=== PATIENT | female | born 1990 | race Caucasian/White ===

== ENCOUNTER 2016-08-08 21:00 | Observation (INO) | payer MEDICAID ==
[~2016-08-08] VITALS: Ht 175.3 cm; Wt 62.5 kg
[~2016-08-08 21:00] MED LIST: ALPR.25 PO; BACT PO; CITA10SO PO; ZOFR4TAB3 SL
[2016-08-08 21:11] VITALS: BP 134/71; PULSE 83; RESP 25; TEMP 98; O2SAT 98
[2016-08-08] MEDS ORDERED: ONDANSETRON HCL 4 MG/2 ML VIAL IV PUSH ONE (21:15)
[2016-08-08] MEDS ORDERED: LIDOCAINE HCL 1% PF 30 ML VIAL INFIL ONE (21:15)
[2016-08-08] MEDS ORDERED: HYDROmorphone HCL PF 1 MG/ML VIAL IV PUSH ONE ×2 (21:15→22:30)
[2016-08-08] MEDS ORDERED: LIDOCAINE 1%/EPINEPHrine 1:100,000 SOLN 20 ML VIAL INFIL ONE ×2 (21:15)
[2016-08-08] MEDS ORDERED: DOXYCYCLINE INJ 200 MG in SODIUM CHLOR 0.9% 250 ML INJ 250 ML IV ONE (21:15)
[2016-08-08] MEDS ORDERED: LORazepam 2 MG/ML VIAL IV PUSH ONE ×2 (21:15→22:30)
[2016-08-08] MEDS ORDERED: SODIUM CHLORIDE 0.9% FLUSH 10 ML FLUSH IVF PRN (21:15)
[2016-08-08] MEDS ORDERED: LIDOCAINE 0.5%/EPINEPHrine 1:200,000 SOLN 50 ML VIAL INFIL ONE (21:15)
[2016-08-08] MEDS ORDERED: TETANUS/DIPHTHERIA TOXOID PEDIATRIC 0.5 ML VIAL IM ONE (21:15)
[2016-08-08] MEDS ORDERED: DIPHTH/TETANUS/ACEL PERTUSSIS (BOOSTER) 0.5 ML VIAL/PFS IM ONE ×2 (21:24→21:45)
--- NOTE | 2016-08-08 22:26 | PD ---
Physical Exam Time Seen by Provider: 21:40 Data Data Last Documented VS Vital Signs Date Time Temp Pulse Resp B/P Pulse Ox O2 Delivery O2 Flow Rate FiO2 08/08/16 21:11 98.0 83 25 134/71 98 Orders Lidocai-Epi 1%-1:100,000 Inj (Xylocaine- (08/08/16 21:15) Lidocaine Pf 1% Inj (Xylocaine-Mpf 1% In (08/08/16 21:15) Lidocai-Epi 1%-1:100,000 Inj (Xylocaine- (08/08/16 21:15) Iv Access Insert/Monitor (08/08/16 21:09) Wound Care (08/08/16 21:09) Sodium Chloride 0.9% Flush (Ns Flush) (08/08/16 21:15) Tetanus-Diphther Tox Peds Inj (Tetanus-D (08/08/16 21:15) Doxycycline Inj (Vibramycin Inj) (08/08/16 21:15) Hydromorphone Pf Inj (Dilaudid Pf Inj) (08/08/16 21:15) Ondansetron Inj (Zofran Inj) (08/08/16 21:15) Lorazepam Inj (Ativan Inj) (08/08/16 21:15) Lidocai-Epi 0.5%-1:200,000 Inj (Xylocain (08/08/16 21:15) Lvno-Idd-Nifkfj (Booster) Inj (Boostrix (08/08/16 21:24) Lwry-Vfl-Miwuqa (Booster) Inj (Boostrix (08/08/16 21:45) Lorazepam Inj (Ativan Inj) (08/08/16 22:30) Hydromorphone Pf Inj (Dilaudid Pf Inj) (08/08/16 22:30) Sodium Chlor 0.9% 1000 Ml Inj (Ns 1000 M (08/08/16 22:30) Complete Blood Count With Diff (08/08/16 22:40) Basic Metabolic Panel (Bmp) (08/08/16 22:40) Admit Order (Ed Use Only) (08/08/16 22:45) MDM Medical Record Reviewed: Yes Supervised Visit with MELINDA: No Narrative Course This patient presents with numerous lacerations. I was asked to repair them. The patient verbally consents. Please see my procedure note. Mandy penn also performed several laceration repairs, see her procedure Notes. Procedures Procedure Narrative LACERATION LOCATION: Left buttocks LENGTH: 4 cm NUMBER OF STITCHES/JOHN: 3 REPAIR: The area of the laceration was prepped with Betadine and sterilely draped. The laceration was infiltrated with 1% lidocaine with epinephrine. The wound was copiously irrigated and explored without evidence of foreign body , tendon injury or neurovascular injury. The wound was closed using 4-0 nylon one simple interrupted suture, 2 continuous running sutures. This was a single layer repair. A sterile dressing was applied. The patient was advised to keep the dressing clean and dry. Patient tolerated the procedure well. LACERATION LOCATION: Left buttocks LENGTH: 4 cm NUMBER OF STITCHES/JOHN: 1 REPAIR: The area of the laceration was prepped with Betadine and sterilely draped. The laceration was infiltrated with 1% lidocaine with epinephrine. The wound was copiously irrigated and explored without evidence of foreign body , tendon injury or neurovascular injury. The wound was closed using 4-0 nylon one continuous running suture. This was a single layer repair. A sterile dressing was applied. The patient was advised to keep the dressing clean and dry. Patient tolerated the procedure well. LACERATION LOCATION: Left buttocks LENGTH: 6 cm NUMBER OF STITCHES/JOHN: 1 REPAIR: The area of the laceration was prepped with Betadine and sterilely draped. The laceration was infiltrated with 1% lidocaine with epinephrine. The wound was copiously irrigated and explored without evidence of foreign body , tendon injury or neurovascular injury. The wound was closed using 4-0 nylon one continuous running suture. This was a single layer repair. A sterile dressing was applied. The patient was advised to keep the dressing clean and dry. Patient tolerated the procedure well. LACERATION LOCATION: Left upper back LENGTH: 3 cm NUMBER OF STITCHES/JOHN: 1 REPAIR: The area of the laceration was prepped with Betadine and sterilely draped. The laceration was infiltrated with 1% lidocaine with epinephrine. The wound was copiously irrigated and explored without evidence of foreign body , tendon injury or neurovascular injury. The wound was closed using 4-0 nylon one continuous running suture. This was a single layer repair. A sterile dressing was applied. The patient was advised to keep the dressing clean and dry. Patient tolerated the procedure well. LACERATION LOCATION: Left upper back LENGTH: 3 cm NUMBER OF STITCHES/JOHN: 1 REPAIR: The area of the laceration was prepped with Betadine and sterilely draped. The laceration was infiltrated with 1% lidocaine with epinephrine. The wound was copiously irrigated and explored without evidence of foreign body , tendon injury or neurovascular injury. The wound was closed using 4-0 nylon one continuous running suture. This was a single layer repair. A sterile dressing was applied. The patient was advised to keep the dressing clean and dry. Patient tolerated the procedure well. LACERATION LOCATION: Left upper back LENGTH: 1 cm NUMBER OF STITCHES/JOHN: 2 REPAIR: The area of the laceration was prepped with Betadine and sterilely draped. The laceration was infiltrated with 1% lidocaine with epinephrine. The wound was copiously irrigated and explored without evidence of foreign body , tendon injury or neurovascular injury. The wound was closed using 4-0 nylon simple interrupted. This was a single layer repair. A sterile dressing was applied. The patient was advised to keep the dressing clean and dry. Patient tolerated the procedure well. Bernard Perez August 08, 2016 22:26
[2016-08-08] MEDS ORDERED: SODIUM CHLOR 0.9% 1000 ML INJ 1,000 ML IV ONE (22:30)
[2016-08-08] MEDS ORDERED: CLINDAMYCIN INJ 900 MG in SODIUM CHLORIDE 0.9% INJ 100 ML IV ONE (23:15)
[2016-08-08 23:24] VITALS: BP 128/65; PULSE 82; RESP 16; O2SAT 99
[2016-08-08 23:29] LABS: AUTOMATED NEUTROPHIL # 14.1 TH/MM3 (1.8-7.7); BASOPHIL # 0.1 TH/MM3 (0-0.2); BASOPHIL % 0.3 % (0.0-2.0); EOSINOPHIL # 0.1 TH/MM3 (0-0.4); EOSINOPHIL % 0.6 % (0.0-4.0); HEMATOCRIT 41.3 % (35.0-46.0); HEMO FLAGS DIFF FINAL; LYMPH % 8.2 % (9.0-44.0); LYMPHOCYTE # 1.4 TH/MM3 (1.0-4.8); MEAN CELL VOLUME 87.2 FL (80.0-100.0); MEAN CORPUSCULAR HEMOGLOBIN 29.2 PG (27.0-34.0); MEAN CORPUSCULAR HGB CONC 33.4 % (32.0-36.0); MONO % 7.1 % (0.0-8.0); NEUT % 83.8 % (16.0-70.0); PLATELET COUNT 354 TH/MM3 (150-450); RED BLOOD COUNT 4.74 MIL/MM3 (4.00-5.30); RED CELL DISTRIBUTION WIDTH 13.5 % (11.6-17.2); WHITE BLOOD COUNT 16.8 TH/MM3 (4.0-11.0)
[2016-08-08] MEDS ORDERED: SODIUM CHLORIDE 0.9% FLUSH 10 ML FLUSH IV FLUSH PRN (23:30)
[2016-08-08] MEDS ORDERED: ONDANSETRON HCL 4 MG/2 ML VIAL IV PRN (23:30)
[2016-08-08] MEDS ORDERED: oxyCODONE/ACETAMINOPHEN 5 MG/325 MG TAB PO PRN (23:30)
[2016-08-08] MEDS ORDERED: Post-op Orders (for Pharmacy) MISC XX ONE (23:30)
[2016-08-08 23:47] LABS: BICARBONATE 28.2 MEQ/L (21.0-32.0); POTASSIUM 3.8 MEQ/L (3.5-5.1)
[2016-08-09 00:09] VITALS: BP 100/56; PULSE 64; RESP 18; TEMP 98.2; O2SAT 97
[2016-08-09] MEDS: HYDROmorphone HCL PF 1 MG/ML VIAL IV PRN ×3 (00:20→06:10)
[2016-08-09] MEDS: SODIUM CHLOR 0.9% 1000 ML INJ 1,000 ML IV SCH ×2 (00:58→09:30)
[2016-08-09] MEDS ORDERED: CLINDAMYCIN INJ 600 MG in SODIUM CHLORIDE 0.9% INJ 50 ML IV SCH (04:00)
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
[2016-08-09 04:37] VITALS: BP 107/55; PULSE 77; RESP 18; TEMP 98.8; O2SAT 97
--- NOTE | 2016-08-09 07:04 | PD ---
Physical Exam Time Seen by Provider: 07:01 Data Data Last Documented VS Vital Signs Date Time Temp Pulse Resp B/P Pulse Ox O2 Delivery O2 Flow Rate FiO2 08/08/16 22:05 16 08/08/16 21:11 98.0 83 134/71 98 Orders Lidocai-Epi 1%-1:100,000 Inj (Xylocaine- (08/08/16 21:15) Lidocaine Pf 1% Inj (Xylocaine-Mpf 1% In (08/08/16 21:15) Lidocai-Epi 1%-1:100,000 Inj (Xylocaine- (08/08/16 21:15) Iv Access Insert/Monitor (08/08/16 21:09) Wound Care (08/08/16 21:09) Sodium Chloride 0.9% Flush (Ns Flush) (08/08/16 21:15) Tetanus-Diphther Tox Peds Inj (Tetanus-D (08/08/16 21:15) Doxycycline Inj (Vibramycin Inj) (08/08/16 21:15) Hydromorphone Pf Inj (Dilaudid Pf Inj) (08/08/16 21:15) Ondansetron Inj (Zofran Inj) (08/08/16 21:15) Lorazepam Inj (Ativan Inj) (08/08/16 21:15) Lidocai-Epi 0.5%-1:200,000 Inj (Xylocain (08/08/16 21:15) Hsin-Fyi-Xxvncm (Booster) Inj (Boostrix (08/08/16 21:24) Vxqg-Jig-Upiiis (Booster) Inj (Boostrix (08/08/16 21:45) Lorazepam Inj (Ativan Inj) (08/08/16 22:30) Hydromorphone Pf Inj (Dilaudid Pf Inj) (08/08/16 22:30) Sodium Chlor 0.9% 1000 Ml Inj (Ns 1000 M (08/08/16 22:30) Complete Blood Count With Diff (08/08/16 22:40) Basic Metabolic Panel (Bmp) (08/08/16 22:40) Admit Order (Ed Use Only) (08/08/16 22:45) Labs Laboratory Tests Test 08/08/16 22:40 White Blood Count 16.8 TH/MM3 Red Blood Count 4.74 MIL/MM3 Hemoglobin 13.8 GM/DL Hematocrit 41.3 % Mean Corpuscular Volume 87.2 FL Mean Corpuscular Hemoglobin 29.2 PG Mean Corpuscular Hemoglobin 33.4 % Concent Red Cell Distribution Width 13.5 % Platelet Count 354 TH/MM3 Mean Platelet Volume 6.8 FL Neutrophils (%) (Auto) 83.8 % Lymphocytes (%) (Auto) 8.2 % Monocytes (%) (Auto) 7.1 % Eosinophils (%) (Auto) 0.6 % Basophils (%) (Auto) 0.3 % Neutrophils # (Auto) 14.1 TH/MM3 Lymphocytes # (Auto) 1.4 TH/MM3 Monocytes # (Auto) 1.2 TH/MM3 Eosinophils # (Auto) 0.1 TH/MM3 Basophils # (Auto) 0.1 TH/MM3 CBC Comment DIFF FINAL Differential Comment Sodium Level 141 MEQ/L Potassium Level 3.8 MEQ/L Chloride Level 104 MEQ/L Carbon Dioxide Level 28.2 MEQ/L Anion Gap 9 MEQ/L Blood Urea Nitrogen 11 MG/DL Creatinine 0.83 MG/DL Estimat Glomerular Filtration 82 ML/MIN Rate Random Glucose 70 MG/DL Calcium Level 8.6 MG/DL MDM Medical Record Reviewed: Yes Supervised Visit with MELINDA: No Procedures Procedure Narrative LACERATION LOCATION: Right foot LENGTH: 4 cm NUMBER OF STITCHES/JOHN: 5 sutures REPAIR: The area of the laceration was prepped with Betadine and sterilely draped. The laceration was infiltrated with percent lidocaine with epinephrine. The wound was copiously irrigated and explored without evidence of foreign body, tendon injury or neurovascular injury. The wound was closed using 4-0 Ethilon. This was a single layer repair. A sterile dressing was applied. The patient was advised to keep the dressing clean and dry. Patient tolerated the procedure well. LACERATION LOCATION: Right foot LENGTH: 3 cm NUMBER OF STITCHES/JOHN: 4 sutures REPAIR: The area of the laceration was prepped with Betadine and sterilely draped. The laceration was infiltrated with percent lidocaine with epinephrine. The wound was copiously irrigated and explored without evidence of foreign body, tendon injury or neurovascular injury. The wound was closed using 4-0 Ethilon. This was a single layer repair. A sterile dressing was applied. The patient was advised to keep the dressing clean and dry. Patient tolerated the procedure well. LACERATION LOCATION: Right great toe LENGTH: 2cm NUMBER OF STITCHES/JOHN: 2 sutures REPAIR: The area of the laceration was prepped with Betadine and sterilely draped. The laceration was infiltrated with percent lidocaine with epinephrine. The wound was copiously irrigated and explored without evidence of foreign body, tendon injury or neurovascular injury. The wound was closed using 4-0 Ethilon. This was a single layer repair. A sterile dressing was applied. The patient was advised to keep the dressing clean and dry. Patient tolerated the procedure well. LACERATION LOCATION: Right great toe LENGTH:2 cm NUMBER OF STITCHES/JOHN: 3 sutures REPAIR: The area of the laceration was prepped with Betadine and sterilely draped. The laceration was infiltrated with percent lidocaine with epinephrine. The wound was copiously irrigated and explored without evidence of foreign body, tendon injury or neurovascular injury. The wound was closed using 4-0 Ethilon. This was a single layer repair. A sterile dressing was applied. The patient was advised to keep the dressing clean and dry. Patient tolerated the procedure well. LACERATION LOCATION: Left foot LENGTH: 2 cm NUMBER OF STITCHES/JOHN: 3 sutures REPAIR: The area of the laceration was prepped with Betadine and sterilely draped. The laceration was infiltrated with percent lidocaine with epinephrine. The wound was copiously irrigated and explored without evidence of foreign body, tendon injury or neurovascular injury. The wound was closed using 4-0 Ethilon. This was a single layer repair. A sterile dressing was applied. The patient was advised to keep the dressing clean and dry. Patient tolerated the procedure well. LACERATION LOCATION: Right hand LENGTH: 2 cm NUMBER OF STITCHES/JOHN: 3 sutures REPAIR: The area of the laceration was prepped with Betadine and sterilely draped. The laceration was infiltrated with percent lidocaine with epinephrine. The wound was copiously irrigated and explored without evidence of foreign body, tendon injury or neurovascular injury. The wound was closed using 4-0 Ethilon. This was a single layer repair. A sterile dressing was applied. The patient was advised to keep the dressing clean and dry. Patient tolerated the procedure well. Condition: Stable Mandy Shen August 09, 2016 07:04
[2016-08-09 07:51] VITALS: BP 94/59; PULSE 63; RESP 18; TEMP 98.5; O2SAT 96
[2016-08-09] MEDS ORDERED: SODIUM CHLORIDE 0.9% FLUSH 10 ML FLUSH IV FLUSH SCH (09:00)
[2016-08-09] MEDS ORDERED: KETO10 PO (10:45)
[2016-08-09] MEDS ORDERED: COLA100C3 PO (10:45)
[2016-08-09] MEDS ORDERED: ACET1CAP18 PO (10:45)
[2016-08-09] MEDS ORDERED: CRUTMIS3 (10:51)
[2016-08-09] MEDS ORDERED: BACITRACIN TOP OINT 15 GM TUBE TOPICAL SCH (11:00)
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
[2016-08-09 12:15] VITALS: BP 120/67; PULSE 75; RESP 18; TEMP 98.5; O2SAT 100
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
== END 2016-08-09 13:19 | disposition home or self-care (01) ==
LOC: NEPC 21:00 → NEDA 22:47 → NEPGCP 23:48
PROVIDERS: ADMIT Surgery; ATTEND Surgery
DX: S31.821A Laceration without foreign body of left buttock, initial encounter (principal); S21.212A Laceration without foreign body of left back wall of thorax without penetration into thoracic cavity, initial encounter; S91.311A Laceration without foreign body, right foot, initial encounter; S91.111A Laceration without foreign body of right great toe without damage to nail, initial encounter; S91.312A Laceration without foreign body, left foot, initial encounter; S61.411A Laceration without foreign body of right hand, initial encounter; V94.0XXA Hitting object or bottom of body of water due to fall from watercraft, initial encounter
CPT/HCPCS: 12005; 12006; 80048; 85025; G0378; J1170; J2060; J2405; J7030; J7050; 12007; 90471; 90715; 96374; 96375; 96376

== ENCOUNTER 2016-08-16 13:35 | Emergency (ER) | payer MEDICAID ==
[~2016-08-16] VITALS: Ht 175.3 cm; Wt 50.0 kg
[~2016-08-16 13:35] MED LIST changes: +ACET1CAP18 PO; -ALPR.25 PO; -BACT PO; -CITA10SO PO; +COLA100C3 PO; +CRUTMIS3; +KETO10 PO; -ZOFR4TAB3 SL
[2016-08-16 13:37] VITALS: BP 124/77; PULSE 77; RESP 14; TEMP 98.2; O2SAT 98
[2016-08-16] MEDS ORDERED: DOXY100C PO (14:19)
[2016-08-16] MEDS ORDERED: IBUP800T23 PO (14:19)
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
== END 2016-08-16 14:33 | disposition home or self-care (01) ==
LOC: NEPK 13:35
DX: S91.312D Laceration without foreign body, left foot, subsequent encounter (principal); S91.311D Laceration without foreign body, right foot, subsequent encounter; L08.9 Local infection of the skin and subcutaneous tissue, unspecified; F17.200 Nicotine dependence, unspecified, uncomplicated; W19.XXXD Unspecified fall, subsequent encounter; Z48.02 Encounter for removal of sutures
CPT/HCPCS: 99282

== ENCOUNTER 2016-12-18 17:25 | Emergency (ER) | payer SELFPAY ==
[~2016-12-18] VITALS: Ht 175.3 cm; Wt 67.0 kg
[~2016-12-18 17:25] MED LIST changes: +DOXY100C PO; +IBUP800T23 PO
[2016-12-18 17:28] VITALS: BP 118/76; PULSE 80; RESP 17; TEMP 98.6; O2SAT 100
--- NOTE | 2016-12-18 18:51 | RADRPT ---
EXAM DATE/TIME: 12/18/2016 18:42 [facility] COMPARISON: No previous studies available for comparison. INDICATIONS : Chest pain and shortness of breath. MEDICAL HISTORY : None. SURGICAL HISTORY : None. ENCOUNTER: Initial ACUITY: 2 days PAIN SCORE: 7/10 LOCATION: Bilateral chest FINDINGS: PA and lateral views of the chest demonstrate the lungs to be symmetrically aerated without evidence of mass, infiltrate or effusion. The cardiomediastinal contours are unremarkable. Osseous structure s are intact. CONCLUSION: No evidence of acute cardiopulmonary disease. Demetrius Hope MD on December 18, 2016 at 18:50 Board Certified Radiologist. This report was verified electronically.
[2016-12-18] MEDS ORDERED: SODIUM CHLORIDE 0.9% FLUSH 10 ML FLUSH IVF PRN (19:45)
--- NOTE | 2016-12-18 19:46 | PD ---
HPI Chief Complaint: Chest Pain Time Seen by Provider: 19:16 Travel History International Travel<30 days: No Contact w/Intl Traveler<30days: No Traveled to known affect area: No History of Present Illness HPI 26-year-old female presents to emergency department with complaint of midsternal chest pain for the last 2-3 days. Does not know how far along she is. Last menstrual period November 03. Reports feeling exhausted. Denies shortness of breath. Says it feels like she is having heart palpitations at times, but denies at this time. Reports nausea without vomiting. Denies fevers , hemoptysis. Denies recent illness. Reports intermittent pelvic abdominal cramping that has been on and off. Says she took a test 2 weeks ago because she was having some abdominal cramping and found out that she was . Denies vaginal bleeding. Denies abdominal cramping at this time. Chest pain with movement and palpation. Has tried taking ibuprofen for symptom management. Denies family and self cardiac history. Says she quit smoking cigarettes 2 weeks ago. Has not seen an bird cage assembler. Plans on seeing Dr. Damon. History of vertigo. Denies current medications. Primary care provider is Dr. Nick Gunn. Allergies to acetaminophen and oxycodone. Has no other medical complaints. Symptoms are moderate in severity. No other modifying factors or associated signs and symptoms. PFSH Past Medical History Diabetes: No Diminished Hearing: No Tetanus Vaccination: Unknown ?: LMP: 11/03/16 Menopausal: Yes : 2 Para: 2 Past Surgical History Section: Yes Other Surgery: Yes (c section) Social History Alcohol Use: No Tobacco Use: No (1/2ppd) Substance Use: No Allergies-Medications (Allergen,Severity, Reaction): Coded Allergies: acetaminophen (Unverified Adverse Reaction, Severe, Nausea/Vomiting, ) oxycodone (Unverified Adverse Reaction, Severe, Nausea/Vomiting, 12/18/16) *MDRO Multi-Drug Resistant Organism (Unverified Adverse Reaction, Unknown , 12/18/16) ESBL E. coli (urine) - 02/2014 Reported Meds & Prescriptions Reported Meds & Active Scripts Active No Active Prescriptions or Reported Medications Review of Systems Except as stated in HPI: all other systems reviewed are Neg Physical Exam Narrative GENERAL: Well-nourished, well-developed female patient, in no acute distress SKIN: Warm and dry. HEAD: Atraumatic. Normocephalic. EYES: Pupils equal and round. No scleral icterus. No injection or drainage. ENT: Mucosa pink and moist. NECK: Trachea midline. CHEST: Reproducible chest wall tenderness to the mid left sternum/breast; no crepitance or deformity. No retractions or use of accessory muscles. CARDIOVASCULAR: Regular rate and rhythm. No murmur appreciated. RESPIRATORY: No accessory muscle use. Clear to auscultation. Breath sounds equal bilaterally. No retractions or tachypnea. GASTROINTESTINAL: Abdomen soft, non-tender, nondistended. Hepatic and splenic margins not palpable. Bowel sounds are active 4 quadrants. MUSCULOSKELETAL: No obvious deformities. No clubbing. No cyanosis. No edema. BACK: No CVA tenderness. NEUROLOGICAL: Awake and alert. Oriented 3. No obvious cranial nerve deficits. Motor grossly within normal limits. Normal speech. Moves all extremities. 5/5 strength to all extremities. PSYCHIATRIC: Appropriate mood and affect; insight and judgment normal. Data Data Last Documented VS Vital Signs Date Time Temp Pulse Resp B/P (MAP) Pulse Ox O2 Delivery O2 Flow Rate FiO2 12/18/16 18:56 65 12/18/16 17:28 98.6 17 118/76 (90) 100 Room Air Orders Orders Electrocardiogram (12/18/16 17:53) Chest, Pa & Lat (12/18/16 17:53) Beta Hcg (Quant/Titer) (12/18/16 19:32) Us Pelvis (Ques Preg/Ectopic) (12/18/16 ) Urinalysis - C+S If Indicated (12/18/16 19:32) Iv Access Insert/Monitor (12/18/16 19:32) Sodium Chloride 0.9% Flush (Ns Flush) (12/18/16 19:45) Ed Urine Pregnancytest Poc (12/18/16 19:32) Labs Laboratory Tests Test 12/18/16 20:08 Urine Color YELLOW Urine Turbidity HAZY Urine pH 6.0 Urine Specific [place] 1.025 Urine Protein TRACE mg/dL Urine Glucose (UA) NEG mg/dL Urine Ketones NEG mg/dL Urine Occult Blood NEG Urine Nitrite NEG Urine Bilirubin NEG Urine Urobilinogen LESS THAN 2.0 MG/DL Urine Leukocyte Esterase MOD Urine RBC 2 /hpf Urine WBC 3 /hpf Urine Squamous Epithelial Cells 11 /hpf Urine Bacteria FEW /hpf Urine Mucus FEW /lpf Microscopic Urinalysis Comment CULT NOT INDICATED MDM Medical Decision Making Medical Screen Exam Complete: Yes Emergency Medical Condition: Yes Medical Record Reviewed: Yes Differential Diagnosis Chest wall pain, costochondritis, chest wall muscle strain, less likely [place]; intrauterine , ectopic Narrative Course 26-year-old female that is and had last menstrual period November 03 with reproducible chest wall pain and intermittent lower abdominal pain. Denies vaginal discharge or bleeding. Chest x-ray is no acute findings. EKG with normal sinus rhythm; no ST elevation or depression. 2041: Urinalysis with no signs of infection. HCG pending. Pelvic and transvaginal ultrasound pending. Patient reported off to Dr. Graham at this time. He has never patient about this patient. Diagnosis Primary Impression: Chest wall pain Scripts No Active Prescriptions or Reported Meds Debbie Bradford Dec 18, 2016 19:46
[2016-12-18 20:37] LABS: BACTERIA, URINE FEW /hpf; BLOOD, URINE NEG (NEG); COMMENT (UR) CULT NOT INDICATED; CULTURE IF INDICATED CULT NOT INDICATED; GLUCOSE,URINE NEG (NEG); KETONE, URINE NEG (NEG); MUCUS URINE FEW /lpf (OCC); NITRITE,URINE NEG (NEG); SQUAMOUS EPITHELIAL CELL URINE 11 /hpf (0-5); URINE COLOR YELLOW (YELLW/STRAW)
--- NOTE | 2016-12-18 20:52 | PD ---
Data Data Last Documented VS Vital Signs Date Time Temp Pulse Resp B/P (MAP) Pulse Ox O2 Delivery O2 Flow Rate FiO2 12/18/16 22:28 72 16 120/72 (88) 99 12/18/16 17:28 98.6 Room Air Orders Orders Electrocardiogram (12/18/16 17:53) Chest, Pa & Lat (12/18/16 17:53) Beta Hcg (Quant/Titer) (12/18/16 19:32) Urinalysis - C+S If Indicated (12/18/16 19:32) Iv Access Insert/Monitor (12/18/16 19:32) Sodium Chloride 0.9% Flush (Ns Flush) (12/18/16 19:45) Ed Urine Pregnancytest Poc (12/18/16 19:32) Us Pelvis (Ques Pr/Ect)W Trans (12/18/16 ) Labs Laboratory Tests Test 12/18/16 20:08 Urine Color YELLOW Urine Turbidity HAZY Urine pH 6.0 Urine Specific [place] 1.025 Urine Protein TRACE mg/dL Urine Glucose (UA) NEG mg/dL Urine Ketones NEG mg/dL Urine Occult Blood NEG Urine Nitrite NEG Urine Bilirubin NEG Urine Urobilinogen LESS THAN 2.0 MG/DL Urine Leukocyte Esterase MOD Urine RBC 2 /hpf Urine WBC 3 /hpf Urine Squamous Epithelial Cells 11 /hpf Urine Bacteria FEW /hpf Urine Mucus FEW /lpf Microscopic Urinalysis Comment CULT NOT INDICATED Human Chorionic Gonadotropin, Quant 6317 MIU/ML MDM Supervised Visit with MELINDA: Yes Narrative Course Patient care assumed from Kalina PORTER at 2100. This is a 26-year-old female presents emergency department chiefly for chest pain. She's coming by her significant other who states pérez he thinks he just needs to relax more. Patient is , hCG is approximately 6000, official ultrasound was obtained which shows: Last 24 hours Impressions Chest X-Ray 12/18/16 1753 Signed Impressions: Service Date/Time: Sunday, December 18, 2016 18:42 - CONCLUSION: No evidence of acute cardiopulmonary disease. Demetrius Hope MD Pelvis Ultrasound 12/18/16 0000 Signed Impressions: Service Date/Time: Sunday, December 18, 2016 20:48 - CONCLUSION: Very early intrauterine without an acute abnormality. Please see above. Demetrius Hope MD Patient appears well in no distress, reviewed her EKG which is normal. Discussed with her symptomatic management early care taking vitamins need follow-up with an MEDICAL DIAGNOSTIC RADIOGRAPHER and return to ED criteria. She stable for discharge. She appears quite well and quite pleasant. Diagnosis Primary Impression: Chest wall pain Additional Impression: Abdominal pain affecting Med/Other Pt SpecificInfo: Prescription(s) given Scripts Vit W/ Ferrous Fumara ( Vitamins 28-0.8 mg) 28 Mg Iron-800 Mcg Tab 1 TAB PO DAILY for 30 Days, 9 Refills Prov: Rogelio Graham MD 12/18/16 Disposition: 01 DISCHARGE HOME Condition: Stable Rogelio Graham MD Dec 18, 2016 20:52
[2016-12-18 21:05] LABS: BETA HCG QUANT 6317 MIU/ML (0-5)
--- NOTE | 2016-12-18 21:28 | EKG ---
Date Performed: 12/18/2016 Time Performed: 19:04:10 PTAGE: 26 years EKG: Sinus rhythm INCOMPLETE RIGHT BUNDLE BRANCH BLOCK BORDERLINE ECG NO PREVIOUS TRACING DOCTOR: Twan Leal Interpretating Date/Time 12/18/2016 21:27:31
--- NOTE | 2016-12-18 21:45 | RADRPT ---
EXAM DATE/TIME: 12/18/2016 20:48 [facility] COMPARISON: No previous studies available for comparison. INDICATIONS : Pelvic pain. LAB(S): Beta-hC MEDICAL HISTORY : . SURGICAL HISTORY : section. ENCOUNTER: Initial ACUITY: 1 week PAIN SCORE: 3/10 LOCATION: Bilateral pelvis MEASUREMENTS: UTERUS: 9.8 x 7.0 x 5.2 cm ENDOMETRIAL STRIPE: >20 mm RIGHT OVARY: 4.1 x 2.3 x 2.9 cm LEFT OVARY: 3.6 x 2.6 x 2.2 cm FREE FLUID: No FINDINGS: UTERUS: 12 x 7 x 9 mm gestational sac seen in the uterine cavity, too small to date. No yolk sac or tracy e seen but probably too early. No subchorionic hemorrhage or other acute complication demonstrated. RIGHT OVARY: Ovary contains no mass or significant cystic lesion. LEFT OVARY: Ovary contains no mass or significant cystic lesion. MISCELLANEOUS: No free fluid. CONCLUSION: Very early intrauterine without an acute abnormality. Please see above. Demetrius Hope MD on December 18, 2016 at 21:42 Board Certified Radiologist. This report was verified electronically.
[2016-12-18] MEDS ORDERED: PRENTAB7 PO (22:22)
[2016-12-18 22:28] VITALS: BP 120/72
== END 2016-12-18 22:32 | disposition home or self-care (01) ==
LOC: NEPD 17:25
DX: O26.891 Other specified pregnancy related conditions, first trimester (principal); R07.89 Other chest pain; R10.9 Unspecified abdominal pain; I45.10 Unspecified right bundle-branch block; Z87.891 Personal history of nicotine dependence; Z34.91 Encounter for supervision of normal pregnancy, unspecified, first trimester
CPT/HCPCS: 71020; 76700; 76817; 81001; 84702; 93005

== ENCOUNTER 2017-01-12 12:18 | Emergency (ER) | payer MEDICAID ==
[~2017-01-12] VITALS: Ht 175.3 cm; Wt 67.5 kg
[~2017-01-12 12:18] MED LIST changes: -ACET1CAP18 PO; -COLA100C3 PO; -CRUTMIS3; -DOXY100C PO; -IBUP800T23 PO; -KETO10 PO; +PRENTAB7 PO
[2017-01-12 12:21] VITALS: BP 109/61; PULSE 81; RESP 15; TEMP 98.2; O2SAT 99
--- NOTE | 2017-01-12 12:34 | PD ---
Physical Exam Date Seen by Provider: Jan 12, 2017 Time Seen by Provider: 12:33 Narrative 26-year-old female who is 9 weeks presents emergency Department with severe nausea, and emesis for the past 4 days. She's been unable to eat or keep any water down. Patient was referred here for evaluation of dehydration. Patient's history of MRSA, allergies to acetaminophen and oxycodone. Data Data Last Documented VS Vital Signs Date Time Temp Pulse Resp B/P (MAP) Pulse Ox O2 Delivery O2 Flow Rate FiO2 01/12/17 12:21 98.2 81 15 109/61 (77) 99 MDM Medical Record Reviewed: Yes Supervised Visit with MELINDA: Yes Narrative Course Vital signs are stable. Patient is awaiting bed placement. Condition: Stable Lorenzo Rodríguez Jan 12, 2017 12:34
== END 2017-01-12 13:55 | disposition left against medical advice (07) ==
LOC: NED 12:18
DX: O21.9 Vomiting of pregnancy, unspecified (principal); Z3A.09 9 weeks gestation of pregnancy; Z53.21 Procedure and treatment not carried out due to patient leaving prior to being seen by health care provider
CPT/HCPCS: 99281

== ENCOUNTER 2017-02-01 16:14 | Emergency (ER) | payer MEDICAID ==
[~2017-02-01] VITALS: Ht 175.3 cm; Wt 65.0 kg
[2017-02-01 16:16] VITALS: BP 119/63; PULSE 81; RESP 16; TEMP 98.2; O2SAT 100
[2017-02-01] MEDS ORDERED: SODIUM CHLOR 0.9% 1000 ML INJ 1,000 ML IV ONE ×2 (17:15→18:00)
[2017-02-01] MEDS ORDERED: ONDANSETRON HCL 4 MG/2 ML VIAL IV PUSH ONE (17:15)
--- NOTE | 2017-02-01 17:48 | PD ---
HPI . Vomiting Chief Complaint: GI Complaint Time Seen by Provider: 17:10 Travel History International Travel<30 days: No Contact w/Intl Traveler<30days: No Traveled to known affect area: No History of Present Illness HPI This patient presents with a chief complaint of vomiting. Onset was about 3 days ago. She has subsequently developed dizziness and shaking. She also has diffuse abdominal pain. She has been trying to treat her symptoms with homeopathic. This has not been successful. She is now complaining with decreased urinary output. This patient is 13 weeks . She states that she has not had any significant complications related to . She is followed by an OB doctor and has had a previous ultrasound showing a viable IUP. PFSH Past Medical History Diabetes: No Diminished Hearing: No Medical other: Yes (vertigo) ?: Menopausal: Yes : 2 Para: 2 Past Surgical History Section: Yes Other Surgery: Yes (c section) Social History Alcohol Use: No Tobacco Use: No Substance Use: No (THC) Allergies-Medications (Allergen,Severity, Reaction): Coded Allergies: acetaminophen (Verified Adverse Reaction, Severe, Nausea/Vomiting, ) oxycodone (Verified Adverse Reaction, Severe, Nausea/Vomiting, 02/01/17) *MDRO Multi-Drug Resistant Organism (Unverified Adverse Reaction, Unknown , 01/12/17) ESBL E. coli (urine) - 02/2014 codeine (Verified Adverse Reaction, Unknown, VOMITING, 02/01/17) Reported Meds & Prescriptions Reported Meds & Active Scripts Active Vitamins 28-0.8 mg ( Vit W/ Ferrous Fumara) 28 Mg Iron-800 Mcg Tab 1 Tab PO DAILY 30 Days Review of Systems Except as stated in HPI: all other systems reviewed are Neg General / Constitutional: No: Fever, Chills Gastrointestinal: Positive: Nausea, Vomiting, Abdominal Pain, No: Diarrhea Genitourinary: Positive: Decreased Urinary Output Physical Exam Narrative GENERAL: Awake and alert and in no acute distress. SKIN: warm/dry. Good color and good turgor. HEAD: Normocephalic. Atraumatic. EYES: Pupils equal and round. No scleral icterus. No injection or drainage. ENT: No nasal bleeding or discharge. Mucous membranes pink and moist. NECK: Trachea midline. Full range of motion without pain.. CARDIOVASCULAR: Regular rate and rhythm. Heart sounds are normal. RESPIRATORY: No accessory muscle use. Clear to auscultation. Breath sounds equal bilaterally. GASTROINTESTINAL: Abdomen soft. Diffusely tender. Bowel sounds present. Nondistended. MUSCULOSKELETAL: No obvious deformities. NEUROLOGICAL: Awake and alert. No obvious cranial nerve deficits. Motor grossly within normal limits. Normal speech. PSYCHIATRIC: Appropriate mood and affect; insight and judgment normal. Data Data Last Documented VS Vital Signs Date Time Temp Pulse Resp B/P (MAP) Pulse Ox O2 Delivery O2 Flow Rate FiO2 02/01/17 19:05 71 18 97/58 (71) 100 Room Air 02/01/17 16:16 98.2 Orders Orders Complete Blood Count With Diff (02/01/17 16:38) Urinalysis - C+S If Indicated (02/01/17 16:38) Comprehensive Metabolic Panel (02/01/17 16:38) Lipase (02/01/17 16:38) Beta Hcg (Quant/Titer) (02/01/17 16:38) Sodium Chlor 0.9% 1000 Ml Inj (Ns 1000 M (02/01/17 17:15) Ondansetron Inj (Zofran Inj) (02/01/17 17:15) Sodium Chlor 0.9% 1000 Ml Inj (Ns 1000 M (02/01/17 18:00) Labs Laboratory Tests Test 02/01/17 17:15 02/01/17 17:27 Urine Color YELLOW Urine Turbidity HAZY Urine pH 5.5 Urine Specific [place] 1.034 Urine Protein 30 mg/dL Urine Glucose (UA) NEG mg/dL Urine Ketones NEG mg/dL Urine Occult Blood NEG Urine Nitrite NEG Urine Bilirubin NEG Urine Urobilinogen 2.0 MG/DL Urine Leukocyte Esterase SMALL Urine RBC 1 /hpf Urine WBC 4 /hpf Urine Squamous Epithelial Cells 8 /hpf Urine Amorphous Sediment RARE Urine Mucus MOD /lpf Microscopic Urinalysis Comment CULT NOT INDICATED White Blood Count 10.9 TH/MM3 Red Blood Count 4.51 MIL/MM3 Hemoglobin 13.6 GM/DL Hematocrit 39.3 % Mean Corpuscular Volume 87.1 FL Mean Corpuscular Hemoglobin 30.2 PG Mean Corpuscular Hemoglobin Concent 34.6 % Red Cell Distribution Width 12.4 % Platelet Count 344 TH/MM3 Mean Platelet Volume 6.4 FL Neutrophils (%) (Auto) 74.5 % Lymphocytes (%) (Auto) 17.2 % Monocytes (%) (Auto) 6.2 % Eosinophils (%) (Auto) 1.9 % Basophils (%) (Auto) 0.2 % Neutrophils # (Auto) 8.1 TH/MM3 Lymphocytes # (Auto) 1.9 TH/MM3 Monocytes # (Auto) 0.7 TH/MM3 Eosinophils # (Auto) 0.2 TH/MM3 Basophils # (Auto) 0.0 TH/MM3 CBC Comment DIFF FINAL Differential Comment Blood Urea Nitrogen 9 MG/DL Creatinine 0.62 MG/DL Random Glucose 67 MG/DL Total Protein 7.5 GM/DL Albumin 3.7 GM/DL Calcium Level 8.6 MG/DL Alkaline Phosphatase 54 U/L Aspartate Amino Transf (AST/SGOT) 16 U/L Alanine Aminotransferase (ALT/SGPT) 25 U/L Total Bilirubin 0.4 MG/DL Sodium Level 135 MEQ/L Potassium Level 3.2 MEQ/L Chloride Level 102 MEQ/L Carbon Dioxide Level 25.6 MEQ/L Anion Gap 7 MEQ/L Estimat Glomerular Filtration Rate 115 ML/MIN Lipase 141 U/L Human Chorionic Gonadotropin, Quant 25290 MIU/ML MDM Medical Decision Making Medical Screen Exam Complete: Yes Emergency Medical Condition: Yes Differential Diagnosis Differential diagnosis includes but is not limited to viral gastritis, food poisoning, pancreatitis, pneumonia, hepatitis, acute coronary syndrome, Narrative Course This patient presents with vomiting. She has decreased urinary output. She is . She is receiving IV fluids and IV Zofran. CBC & BMP Diagram 02/01/17 17:27 Total Protein 7.5, Albumin 3.7, Calcium Level 8.6, Alkaline Phosphatase 54, Aspartate Amino Transf (AST/SGOT) 16, Alanine Aminotransferase (ALT/SGPT) 25, Total Bilirubin 0.4 quant HCG 53220 UA neg for infection She has had 2 L of fluid and states that she feels markedly improved. She wants to go home. She has not yet urinated except initially. However, she is not vomiting. I will discharge her to hydrate at home. Diagnosis Primary Impression: Vomiting Qualified Codes: R11.2 - Nausea with vomiting, unspecified Patient Instructions: Acute Nausea and Vomiting (DC), General Instructions Med/Other Pt SpecificInfo: Prescription(s) given Scripts Ondansetron (Zofran) 4 Mg Tab 4 MG PO Q6HR Y for NAUSEA OR VOMITING, #12 TAB 0 Refills Prov: Harmony Cole MD 02/01/17 Disposition: 01 DISCHARGE HOME Condition: Stable Harmony Cole MD Feb 01, 2017 17:47
[2017-02-01 18:01] LABS: BLOOD, URINE NEG (NEG); COMMENT (UR) CULT NOT INDICATED; CULTURE IF INDICATED CULT NOT INDICATED; GLUCOSE,URINE NEG (NEG); KETONE, URINE NEG (NEG); MUCUS URINE MOD /lpf (OCC); NITRITE,URINE NEG (NEG); PH, URINE 5.5 (5.0-8.5); SQUAMOUS EPITHELIAL CELL URINE 8 /hpf (0-5); URINE COLOR YELLOW (YELLW/STRAW)
[2017-02-01 18:03] LABS: ALT (GPT) 25 U/L (10-53); ANION GAP 7 MEQ/L (5-15); AST (GOT) 16 U/L (15-37); BICARBONATE 25.6 MEQ/L (21.0-32.0); BLOOD UREA NITROGEN 9 MG/DL (7-18); CHLORIDE 102 MEQ/L (98-107); GLOMERULAR FILTRATION RATE 115 ML/MIN (>89); POTASSIUM 3.2 MEQ/L (3.5-5.1); SODIUM (NA) 135 MEQ/L (136-145)
[2017-02-01 18:05] LABS: AUTOMATED NEUTROPHIL # 8.1 TH/MM3 (1.8-7.7); BASOPHIL % 0.2 % (0.0-2.0); EOSINOPHIL # 0.2 TH/MM3 (0-0.4); EOSINOPHIL % 1.9 % (0.0-4.0); HEMATOCRIT 39.3 % (35.0-46.0); HEMO FLAGS DIFF FINAL; LYMPH % 17.2 % (9.0-44.0); LYMPHOCYTE # 1.9 TH/MM3 (1.0-4.8); MEAN CELL VOLUME 87.1 FL (80.0-100.0); MEAN CORPUSCULAR HEMOGLOBIN 30.2 PG (27.0-34.0); MEAN CORPUSCULAR HGB CONC 34.6 % (32.0-36.0); MONO % 6.2 % (0.0-8.0); NEUT % 74.5 % (16.0-70.0); PLATELET COUNT 344 TH/MM3 (150-450); RED BLOOD COUNT 4.51 MIL/MM3 (4.00-5.30); RED CELL DISTRIBUTION WIDTH 12.4 % (11.6-17.2); WHITE BLOOD COUNT 10.9 TH/MM3 (4.0-11.0)
[2017-02-01 18:19] LABS: ALKALINE PHOSPHATASE 54 U/L (45-117); BETA HCG QUANT 47663 MIU/ML (0-5); TOTAL BILIRUBIN ADULT 0.4 MG/DL (0.2-1.0)
[2017-02-01 19:05] VITALS: BP 97/58; PULSE 71; RESP 18; O2SAT 100
[2017-02-01] MEDS ORDERED: ZOFR4TAB PO (20:05)
== END 2017-02-01 20:20 | disposition home or self-care (01) ==
LOC: NEPD 16:14
DX: O26.891 Other specified pregnancy related conditions, first trimester (principal); R11.2 Nausea with vomiting, unspecified; R42 Dizziness and giddiness; Z3A.13 13 weeks gestation of pregnancy
CPT/HCPCS: 80053; 81001; 83690; 84702; 85025; 96361; 96374; 99284; J2405; J7030

== ENCOUNTER → 2017-03-03 | Outpatient (CLI) | payer MEDICAID ==
[~2017-03-03] MED LIST changes: +ZOFR4TAB PO
== END ==
LOC: HPND 12:10
PROVIDERS: ATTEND Obstetrics & Gynecology
DX: O09.212 Supervision of pregnancy with history of pre-term labor, second trimester (principal); Z36.3 Encounter for antenatal screening for malformations
CPT/HCPCS: 76805; 76817

== ENCOUNTER 2017-03-12 19:47 | Emergency (ER) | payer MEDICAID ==
[2017-03-12] MEDS ORDERED: ONDANSETRON HCL 4 MG/2 ML VIAL ONE (20:24)
[2017-03-12] MEDS ORDERED: LACTATED RINGER'S 1000 ML INJ 1,000 ML IV SCH (20:39)
[2017-03-12 20:45] VITALS: RESP 18
[2017-03-12] MEDS ORDERED: ONDANSETRON HCL 4 MG/2 ML VIAL IV PUSH ONE (20:45)
--- NOTE | 2017-03-12 20:54 | PD ---
HPI Chief Complaint N/V/D Date Seen: Mar 12, 2017 Time Seen: 20:41 Travel History International Travel<30 Days: No Contact w/Intl Traveler<30Days: No Known Affected Area: No History of Present Illness HPI Pt is a 26y/o @ 19.3wks. She has PNC with Dr. Damon. She presents with c/o N/V/D x2d. Her daughter had similar symptoms. She has been so dehydrated that she has not been able to urinate today. She has been feeling both cramping and back pain. No LOF, VB. +FM. She has a h/o PTD @ 23wks with G2. She is supposed to initiate 17-OHP soon. Weeks Gestation: 19 Para: 2 : 3 Last Menstrual Period: Mar 12, 2017 History Past Medical History Medical History: Denies Significant Hx Obstetric History Obstetric History 1. CS 2. at 23wks 3. 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 codeine (Verified Adverse Reaction, Unknown, VOMITING, 02/01/17) Home Meds Active Scripts Ondansetron (Zofran) 4 Mg Tab, 4 MG PO Q6HR Y for NAUSEA OR VOMITING, #12 TAB 0 Refills Prov:Harmony Cole MD 02/01/17 Vit W/ Ferrous Fumara ( Vitamins 28-0.8 mg) 28 Mg Iron-800 Mcg Tab, 1 TAB PO DAILY for 30 Days, 9 Refills Prov:Rogelio Graham MD 12/18/16 Review of Systems Except as stated in HPI: all other systems reviewed are Neg Physical Exam Narrative General: well developed, well nourished, no acute distress HEENT: normocephalic atraumatic, extraocular movements intact, neck supple Abdomen: soft, gravid, nontender, nondistended Extremities: full range of motion Skin: normal coloration, no rashes, no suspicious skin lesions noted Neurologic: cranial nerves 2-12 grossly intact, normal muscle tone, normal gait Psychiatric: normal mood and affect, appropriate FHTs: +FCA [place]: quiet Data Data Vital Signs Reviewed: Yes Orders Orders Ondansetron Inj (Zofran Inj) (03/12/17 20:24) Vital Signs (Adult) .ON ADMISSION (03/12/17 20:39) ^ Labor Status (03/12/17 20:39) Heart (03/12/17 20:39) Urinalysis - C+S If Indicated (03/12/17 20:39) ^ Hydration (03/12/17 20:39) Lactated Ringer's 1000 Ml Inj (Lr 1000 M (03/12/17 20:39) Ondansetron Inj (Zofran Inj) (03/12/17 20:45) MDM Plan 26y/o @ 19.3wks with viral gastroenteritis. -- IVF hydration -- check UA -- zofran PRN -- PO challenge when able -- +FCA Dispo: d/c home once clinically improved Diagnosis Diagnosis: Primary Impression: 19 weeks gestation of Additional Impressions: Viral gastroenteritis History of delivery, currently in second trimester Cecil Vrik MD Mar 12, 2017 20:54
[2017-03-12 21:15] VITALS: RESP 18
[2017-03-12 23:25] LABS: BACTERIA, URINE RARE /hpf; BILIRUBIN, URINE NEG (NEG); BLOOD, URINE NEG (NEG); GLUCOSE,URINE NEG (NEG); KETONE, URINE 10 mg/dL (NEG); MUCUS URINE MOD /lpf (OCC); NITRITE,URINE NEG (NEG); PH, URINE 5.5 (5.0-8.5); SQUAMOUS EPITHELIAL CELL URINE <1 /hpf (0-5); TRANSITIONAL EPI CELLS, URINE <1 /hpf; URINE COLOR YELLOW (YELLW/STRAW); URINE LEUKOCYTE ESTERASE NEG (NEG)
== END 2017-03-12 23:58 | disposition home or self-care (01) ==
LOC: HOBED 19:47
DX: O98.512 Other viral diseases complicating pregnancy, second trimester (principal); A08.4 Viral intestinal infection, unspecified; Z3A.19 19 weeks gestation of pregnancy
CPT/HCPCS: 81001; 96361; 96374; 99284; J2405

== ENCOUNTER → 2017-03-17 | Outpatient (CLI) | payer MEDICAID | LOC: HPND 10:25 | PROVIDERS: ATTEND Obstetrics & Gynecology | DX: O09.212 Supervision of pregnancy with history of pre-term labor, second trimester (principal); O44.02 Complete placenta previa NOS or without hemorrhage, second trimester | CPT/HCPCS: 76815; 76817 ==